=== PATIENT | male | born 2000 | race African-American/Black ===

== ENCOUNTER 2021-09-07 00:28 | Emergency (ER) | payer SELFPAY ==
[~2021-09-07] VITALS: Ht 185.4 cm; Wt 86.0 kg
[2021-09-07] MEDS ORDERED: NALOXONE 2 MG/2 ML DISP.SYRIN. ONE (00:30)
--- NOTE | 2021-09-07 00:51 | PHYS DOC ---
Past Medical History Past Medical History: No Pertinent History Past Surgical History: Tonsillectomy Alcohol Use: None Drug Use: None Adult General HPI HPI The patient is a 21-year-old male who presents via EMS for evaluation of an opiate overdose occurring prior to arrival. Patient reports that he took a "Perc 30." He was then found down on the ground in the bathroom unresponsive by family. EMS were called. Upon their arrival patient was breathing and had a pulse but was completely obtunded. They administered 2 mg of IV Narcan whereupon the patient woke up and was alert and oriented. He is actively vomiting upon initial evaluation here in the emergency department. He denies other drug or alcohol ingestions and denies any self-harm intent; states the ingestion was recreational. Vital signs and blood glucose are appropriate and the patient is in no acute distress. He does seem a little sleepy on arrival so an additional dose of IV Narcan will be given. Review of Systems Review of Systems A 12 point review of systems was completed and was negative except where noted in HPI above. Current Medications Current Medications Current Medications Medications (Trade) Dose Ordered Sig/Kamari Start Time Stop Time Status Last Admin Dose Admin Naloxone HCl (NARCAN 2mg SYRINGE) 2 mg 1X ONCE 09/07/21 01:00 09/07/21 01:01 DC Ondansetron HCl (Zofran) 4 mg 1X ONCE 09/07/21 01:00 09/07/21 01:01 DC 09/07/21 00:35 4 MG Sodium Chloride 1,000 ml @ 1,000 mls/hr 1X ONCE 09/07/21 01:00 09/07/21 01:59 DC 09/07/21 01:23 1,000 MLS/HR Allergies Allergies Allergies Coded Allergies Type Severity Reaction Last Updated Verified No Known Drug Allergies 01/13/14 No Physical Exam Physical Exam 21-year-old male appearing nontoxic and in no acute distress. Head is normocephalic and atraumatic. Neck is supple and nontender. Oropharynx is moist. Lungs are clear to auscultation at all stations. There is a normal S1 and S2 without rubs or gallops and capillary refill is appropriate, less than 2 seconds globally. Abdomen is soft, nontender and nondistended. Skin is warm and dry without cyanosis, clubbing or edema. Psychiatrically, the patient demonstrates appropriate mood and affect and is alert. Evaluation of the extremities reveals BUEs and BLEs neurovascular intact distally with strength 5- 5, sensation intact light touch in all nerve distributions, radial, DP and PT pulses 2+, capillary positive seconds, hands and feet warm well perfused. Medically, cranial 2 through 12 are intact and there are no lateralizing de ficits seen. Speech is normal. Language normal. Cognition is normal. There is no dysmetria finger-nose or heel jeronimo deficit. Strength 5-5 quadrants of bilateral upper and lower extremities. Sensation is intact light touch in bilateral upper and lower extremities. Patient ambulates with a narrow, steady, non-ataxic gait here in the emergency department and is alert and oriented x4. Current Patient Data Vital Signs Vital Signs Date Time Temp Pulse Resp B/P (MAP) Pulse Ox O2 Delivery O2 Flow Rate FiO2 09/07/21 03:43 65 16 98 09/07/21 00:47 98.2 132/73 (92) Room Air 98.2 Lab Values Laboratory Tests Test 09/07/21 01:27 White Blood Count 9.1 x10^3/uL (4.0-11.0) Red Blood Count 4.73 x10^6/uL (4.30-5.70) Hemoglobin 13.8 g/dL (13.0-17.5) Hematocrit 40.6 % (39.0-53.0) Mean Corpuscular Volume 86 fL (79-100) Mean Corpuscular Hemoglobin 29 pg (25-35) Mean Corpuscular Hemoglobin Concent 34 g/dL (31-37) Red Cell Distribution Width 12.6 % (11.5-14.5) Platelet Count 241 x10^3/uL (140-400) Neutrophils (%) (Auto) 73 % (31-73) Lymphocytes (%) (Auto) 20 % (24-48) L Monocytes (%) (Auto) 6 % (0-9) Eosinophils (%) (Auto) 1 % (0-3) Basophils (%) (Auto) 1 % (0-3) Neutrophils # (Auto) 6.7 x10^3/uL (1.8-7.7) Lymphocytes # (Auto) 1.8 x10^3/uL (1.0-4.8) Monocytes # (Auto) 0.5 x10^3/uL (0.0-1.1) Eosinophils # (Auto) 0.1 x10^3/uL (0.0-0.7) Basophils # (Auto) 0.1 x10^3/uL (0.0-0.2) Sodium Level 142 mmol/L (136-145) Potassium Level 3.8 mmol/L (3.5-5.1) Chloride Level 105 mmol/L (98-107) Carbon Dioxide Level 28 mmol/L (21-32) Anion Gap 9 (6-14) Blood Urea Nitrogen 15 mg/dL (8-26) Creatinine 1.2 mg/dL (0.7-1.3) Estimated GFR (Cockcroft-Gault) 90.8 BUN/Creatinine Ratio 13 (6-20) Glucose Level 129 mg/dL (70-99) H Calcium Level 8.4 mg/dL (8.5-10.1) L Total Bilirubin 0.2 mg/dL (0.2-1.0) Aspartate Amino Transferase (AST) 41 U/L (15-37) H Alanine Aminotransferase (ALT) 45 U/L (16-63) Alkaline Phosphatase 56 U/L (46-116) Total Protein 7.2 g/dL (6.4-8.2) Albumin 3.8 g/dL (3.4-5.0) Albumin/Globulin Ratio 1.1 (1.0-1.7) Salicylates Level 0.6 mg/dL (2.8-20.0) L Salicylate Last Dose Date Salicylate Last Dose Time Acetaminophen Level < 2 mcg/ml (10-30) L Acetaminophen Last Dose Date Acetaminophen Last Dose Time Ethyl Alcohol Level < 10 mg/dL (0-10) Laboratory Tests 09/07/21 01:27 Laboratory Tests 09/07/21 01:27 EKG EKG Sinus rhythm, rate 93, no acute ST elevation or depression, OH 202, QRS 94, QTc 443, EP interpretation. Nonischemic tracing. Radiology/Procedures Radiology/Procedures [] Course & Med Decision Making Course & Med Decision Making 21-year-old gentleman presenting for an overdose of opiate, likely a counterfeit Percocet or oxycodone pill containing pressed fentanyl (we are very familiar with the pills in question at this facility). Checking labs and EKG and will give IV fluids and medication for nausea and will plan to observe for multiple hours to ensure that patient does not re-sedate or have any further problems. If he does well and work-up is reassuring, anticipate discharge home. He understands and agrees. 0430: Labs unremarkable. Patient has declined to give us a urine sample. Resting comfortably in no acute distress and has not sedated since arrival. Wants to go home and is alert, oriented x4, not acutely intoxicated, no acute distress. Ambulatory about the ED with a narrow, steady, non-ataxic gait. In view of reassuring evaluation in this well-appearing gentleman who has been observed for several hours without any issues, will discharge home to follow-up closely with primary care. Patient counseled to avoid illegal drug use in future to reduce very serious risks to his health. He understands and agrees. He understands that if he feels worse instead of better or develops other new symptoms of concern that he should return to the emergency department right away for reevaluation. All questions are answered. Critical care time was 43 minutes today for severe opiate overdose requiring parenteral antidote medication and extended monitoring. Dragon Disclaimer Dragon Disclaimer This electronic medical record was generated, in whole or in part, using a voice recognition dictation system. Departure Departure Impression: Primary Impression: Opiate overdose Disposition: 01 HOME / SELF CARE / HOMELESS Condition: IMPROVED Patient Instructions: Drug Abuse, FAQs Additional Instructions: Follow-up very closely with your primary care doctor in the office in the next 2 to 4 days for reevaluation of your symptoms and a discussion of next best steps in care. Do not use illegal drugs to prevent very serious risks to your health. Drink plenty of fluids to stay hydrated and get plenty of rest. Return to the emergency department right away for worsening symptoms of any kind or with any other new symptoms of concern. Problem Qualifiers Primary Impression: Opiate overdose Encounter type: initial encounter Injury intent: accidental or unintentional Qualified Codes: T40.601A - Poisoning by unspecified narcotics, accidental (unintentional), initial encounter JULIO MCCURDY MD Sep 07, 2021 00:51
--- NOTE | 2021-09-07 00:58 | EKG ---
[facility] [address] [place] [address] Test Date: 2021-09-07 Test Time: 00:35:46 Pat Name: OSVALDO SANCHEZ Department: Room: Gender: M Housekeeper Nanny: : 2000 Requested By: JULIO MCCURDY Order Number: [id number] Reading MD: Measurements Intervals Bieber Rate: 93 P: 38 MI: 202 QRS: 24 QRSD: 94 T: 33 QT: 354 QTc: 443 Interpretive Statements SINUS RHYTHM LEFT ATRIAL ABNORMALITY INCOMPLETE RIGHT BUNDLE BRANCH BLOCK ABNORMAL ECG RI6.02 No previous ECG available for comparison
[2021-09-07] MEDS ORDERED: NALOXONE 2 MG/2 ML DISP.SYRIN. IV ONE (01:00)
[2021-09-07] MEDS ORDERED: ONDANSETRON PF 4 MG/2 ML VIAL. IVP ONE (01:00)
[2021-09-07] MEDS ORDERED: IV NORMAL SALINE 1000ML BAG 1,000 ML IV ONE (01:00)
[2021-09-07 01:35] LABS: BASO # 0.1 x10^3/uL (0.0-0.2); BASO % 1 % (0-3); EOS # 0.1 x10^3/uL (0.0-0.7); EOS % 1 % (0-3); HEMATOCRIT 40.6 % (39.0-53.0); HEMOGLOBIN 13.8 g/dL (13.0-17.5); LYMPH # 1.8 x10^3/uL (1.0-4.8); LYMPH % 20 % (24-48); MEAN CORPUSCULAR HEMOGLOBIN 29 pg (25-35); MEAN CORPUSCULAR HGB CONC 34 g/dL (31-37); MEAN CORPUSCULAR VOLUME 86 fL (79-100); MONO # 0.5 x10^3/uL (0.0-1.1); MONO % 6 % (0-9); NEUT # 6.7 x10^3/uL (1.8-7.7); NEUT % 73 % (31-73); PLATELET COUNT 241 x10^3/uL (140-400); RED BLOOD COUNT 4.73 x10^6/uL (4.30-5.70); RED CELL DISTRIBUTION WIDTH 12.6 % (11.5-14.5); WHITE BLOOD COUNT 9.1 x10^3/uL (4.0-11.0)
[2021-09-07 01:58] LABS: CALCIUM 8.4 mg/dL (8.5-10.1); CREATININE 1.2 mg/dL (0.7-1.3); GFR 90.8; POTASSIUM 3.8 mmol/L (3.5-5.1)
[2021-09-07 02:01] LABS: ACETAMIN < 2 mcg/ml (10-30); SALIC 0.6 mg/dL (2.8-20.0)
[2021-09-07 02:02] LABS: ETHANOL < 10 mg/dL (0-10)
[2021-09-07 02:05] LABS: ALBUMIN 3.8 g/dL (3.4-5.0); ALBUMIN/GLOBULIN RATIO 1.1 (1.0-1.7); TOTAL BILIRUBIN 0.2 mg/dL (0.2-1.0); TOTAL PROTEIN 7.2 g/dL (6.4-8.2)
[2021-09-07 04:56] VITALS: BP 126/72
== END 2021-09-07 04:59 | disposition home or self-care (01) ==
LOC: ER 00:28
DX: T40.2X1A Poisoning by other opioids, accidental (unintentional), initial encounter (principal); Y92.89 Other specified places as the place of occurrence of the external cause
CPT/HCPCS: 36415; 80053; 80329; 85025; 93005; 96361; 96374; 99285; G0480; J2310; J2405; J7030